=== PATIENT | female | born 1965 | race Hispanic/Latino ===

== ENCOUNTER 2021-07-14 10:56 | Emergency (ER) | payer OTHER, SELFPAY ==
[~2021-07-14] VITALS: Ht 154.9 cm; Wt 74.8 kg
[2021-07-14 12:04] VITALS: BP 130/56
== END 2021-07-14 12:06 | disposition home or self-care (01) ==
LOC: EDH 10:56
DX: S82.431A Displaced oblique fracture of shaft of right fibula, initial encounter for closed fracture (principal); Z86.16 Personal history of COVID-19; Z98.51 Tubal ligation status; W18.39XA Other fall on same level, initial encounter; Y93.89 Activity, other specified; Y92.89 Other specified places as the place of occurrence of the external cause; Y99.8 Other external cause status
CPT/HCPCS: 73610